=== PATIENT | female | born 1950 | race Caucasian/White ===

== ENCOUNTER → 2016-10-04 | Outpatient (CLI) | payer OTHER ==
--- NOTE | 2016-10-04 16:55 | DX ---
DEXA Bone Mineral Densitometry Clinical Indications: Postmenopausal, screening for osteoporosis Comparison: July 23, 2013 (low bone density) Technique: Bone Mineral Densitometry (BMD) by Dual Energy X-Ray Absorptiometry (DEXA) was performed utilizing the pinion-pins scanner. The lumbar spine was evaluated in the AP projection. The bilat eral hips and forearm were evaluated in the AP projection. Vertebral fracture assessment was also pe rformed. AP Lumbar Spine: The L1, L2, L3 and L4 vertebral bodies were evaluated. BMD: 0.972 gm/cm2 T-score: -1.8 SD Z-score: -0.3 SD Significantly decreased by 6.2% AP Left Hip: Total BMD: 0.839 gm/cm2 T-score: -1.3 SD Z-score: -0.2 SD Significantly decreased by 6.4% AP Right Hip: Neck BMD: 0.789 gm/cm2 T-score: -1.8 SD Z-score: -0.4 SD Total BMD is significantly decreased by 3.9%. AP Right Forearm, 09/11: BMD: 0.766 gm/cm2 T-score: -1.3 SD Z-score: 0.2 SD Significantly decreased by 7.5%. Vertebral Fracture Assessment: There is a stable mild compression of L1. No new compressions have de veloped.. No prevertebral aortic calcification, significant marginal bone spurring, facet arthrosis, or intrinsic vertebral body sclerosis that would effect the accuracy of the lumbar spine BMD measure ment. Conclusion: Considering the lowest measured site, the patient has low bone density which has signifi cantly decreased. Since the largest decrease has been in the forearm, it would be worthwhile to exclu de hyperparathyroidism. The ten year FRAX risk for any major osteoporotic fracture , which excludes the risk for a wrist frac ture, is 10.3% and for a hip fracture is 1.4%. Any bone loss in this patient is probably related to aging or estrogen deficiency. To prevent osteoporosis and to promote the patient's bone density, the following recommendations shou ld be considered: 1. Pursue a regular regimen of weightbearing and muscle strengthening exercises in order to reduce t he risk of falls and fractures (as tolerated by the patient's general medical condition). 2. Ensure that daily dietary calcium uptake is maximized. 3. Consider checking the serum vitamin D level. Ensure that intake of vitamin D is 600 IU per day (fo r all ages through 70) . 4. Consider follow-up DEXA scan in two years to assess the rate of bone loss in this patient.
== END ==
LOC: FIMAGING 13:46
PROVIDERS: ATTEND Family Medicine
DX: Z13.820 Encounter for screening for osteoporosis (principal); Z78.0 Asymptomatic menopausal state

== ENCOUNTER → 2017-04-11 | Outpatient (CLI) | payer OTHER | LOC: BMCIMAGING 10:55 | PROVIDERS: ATTEND Family Medicine | DX: Z12.39 Encounter for other screening for malignant neoplasm of breast (principal); N63 Unspecified lump in breast | CPT/HCPCS: 76641; G0204 ==

== ENCOUNTER → 2017-04-22 | Outpatient (CLI) | payer OTHER ==
[~2017-04-22] MED LIST: BUPIVACAINE 0.5% 10 ML SDV ONE; LIDO/EPI 1% **Not for Epidural 20 ML MDV ONE; LIDOCAINE 1% 300 MG/30 ML SDV ONE; THROMBIN (BOVINE) 5,000 UNIT VIAL TP ONE
[2017-04-25 15:20] LABS: ACCESSION # HR17-38804; INTERPRETATION See Comments
== END ==
LOC: FIMAGING 07:12
PROVIDERS: ATTEND Family Medicine
PROC: 07B53ZX Excision of Right Axillary Lymphatic, Percutaneous Approach, Diagnostic (ICD-10-PCS; principal; 2017-04-22)
PROC: 0HBT3ZX Excision of Right Breast, Percutaneous Approach, Diagnostic (ICD-10-PCS; principal; 2017-04-22)
DX: C50.911 Malignant neoplasm of unspecified site of right female breast (principal); C77.3 Secondary and unspecified malignant neoplasm of axilla and upper limb lymph nodes
CPT/HCPCS: 19083; 38505; 88360; 88361; G0206

== ENCOUNTER → 2017-05-07 | Outpatient (CLI) | payer OTHER ==
[~2017-05-07] MED LIST changes: -BUPIVACAINE 0.5% 10 ML SDV ONE; +GADOBUTROL 10 ML VIAL IVP ONE; -LIDO/EPI 1% **Not for Epidural 20 ML MDV ONE; -LIDOCAINE 1% 300 MG/30 ML SDV ONE; -THROMBIN (BOVINE) 5,000 UNIT VIAL TP ONE
== END ==
LOC: FIMAGING 09:52
DX: C50.411 Malignant neoplasm of upper-outer quadrant of right female breast (principal)
CPT/HCPCS: 0159T; A9585; C8908

== ENCOUNTER 2017-05-21 06:35 | Day surgery (SDC) | payer OTHER ==
[~2017-05-21 06:35] MED LIST changes: -GADOBUTROL 10 ML VIAL IVP ONE; +LIDOCAINE 1% 2 ML INJ ID PRN; +LR 1,000 ML IV ONE
[2017-05-21] MEDS ORDERED: LIDOCAINE 1% 300 MG/30 ML SDV ONE (08:53)
[2017-05-21] MEDS ORDERED: BUPIVACAINE 0.5% 30 ML SDV ONE (09:18)
[2017-05-21] MEDS ORDERED: BUPIVACAINE/EPI 0.5% 30 ML SDV ONE (09:18)
--- NOTE | 2017-05-21 12:37 | PDANEPAE ---
ANE History of Present Illness Right lumpectomy axillary node ANE Past Medical History - Cardiovascular History Hx Hypertension: No Hx Arrhythmias: No Hx Chest Pain: No Hx Coronary Artery / Peripheral Vascular Disease: No Hx CHF / Valvular Disease: No Hx Palpitations: No - Pulmonary History Hx COPD: No Hx Asthma/Reactive Airway Disease: No Hx Recent Upper Respiratory Infection: No Hx Oxygen in Use at Home: No Hx Sleep Apnea: No Sleep Apnea Screening Result - Last Documented: Negative - Neurologic History Hx Cerebrovascular Accident: No Hx Seizures: No Hx Dementia: No Neurologic History Comment: SCOLIOSIS - Endocrine History Hx Diabetes: No Endocrine History Comment: HYPOTHYROIDISM - Renal History Hx Renal Disorders: No - Liver History Hx Hepatic Disorders: No - Neurological & Psychiatric Hx Hx Neurological and Psychiatric Disorders: No Neurological / Psychiatric History Comment: ANXIETY R/T PROCEDURE - Cancer History Hx Cancer: Yes Cancer History Comment: CURRENT BREAST CA - Congenital Disorder History Hx Congenital Disorders: No - GI History Hx Gastrointestinal Disorders: Yes Gastrointestinal History Comment: GERD - Other Health History Other Health History: ROSACEA - Chronic Pain History Chronic Pain: Yes (ARTHRITIS AND BACK PAIN) - Surgical History Prior Surgeries: STEFFI. COLONOSCOPY. EXPLORATORY LAP FOR FERTILITY REASONS IN HER LATE 20'S ANE Review of Systems Review of Systems: - Exercise capacity METS (RN): 4 METS ANE Patient History - Allergies Allergies/Adverse Reactions: Sulfa (Sulfonamide Antibiotics) Allergy (Verified 05/16/17 12:05) Swelling/neck,face,throat - Home Medications Home Medications: Acid Liquid Yeast Supervisor 05/16/17 [Last Taken Unknown] Herbals/Supplements -Info Only 05/16/17 [Last Taken 05/16/17] LEVOTHYROXINE SODIUM 05/16/17 [Last Taken 05/21/17] Metronidazole Lotion 05/16/17 [Last Taken 05/21/17] PRILOSEC 05/16/17 [Last Taken 05/21/17] - NPO status NPO Since - Liquids (Date): 05/20/17 NPO Since - Liquids (Time): 21:00 NPO Since - Solids (Date): 05/20/17 NPO Since - Solids (Time): 17:45 - Anes Hx Anes Hx: no prior problems - Smoking Hx Smoking Status: Never smoked Marijuana use: No - Alcohol Use Alcohol Use: None - Family Anes Hx Family Anes Hx: none Family Hx Anesthesia Complications: SISTER SENSITIVE WELL ANE Labs/Vital Signs - Vital Signs Blood Pressure: 126/83 Heart Rate: 75 Respiratory Rate: 18 O2 Sat (%): 97 Height: 162.56 cm Weight: 65.771 kg ANE Physical Exam - Airway Neck exam: FROM Mallampati Score: Class 2 Mouth exam: normal dental/mouth exam - Pulmonary Pulmonary: no respiratory distress - Cardiovascular Cardiovascular: regular rate and rhythym - ASA Status ASA Status: II ANE Anesthesia Plan Anesthesia Plan: GA w LMA
[2017-05-21] MEDS ORDERED: MIDAZOLAM 2 MG/2 ML VIAL IVP ONE (12:40)
--- NOTE | 2017-05-21 12:52 | PDHPUP ---
History & Physical Update H&P update statement: This history and physical update is based on an assessment of the patient which was completed after admission or registration (within 24 hours), but prior to the surgery/procedure. H&P update: H&P reviewed & patient examined, no change in patient's condition since H&P completed
[2017-05-21] MEDS ORDERED: ROCURONIUM 50 MG/5 ML VIAL ONE (12:58)
[2017-05-21] MEDS ORDERED: fentaNYL 100 MCG/2 ML INJ ONE ×3 (12:58→13:40)
[2017-05-21] MEDS ORDERED: DEXAMETHASONE 4 MG/ML VIAL ONE (12:58)
[2017-05-21] MEDS ORDERED: PROPOFOL/EMULSION 500 MG/50 ML BOTTLE IV ONE (12:58)
[2017-05-21] MEDS ORDERED: KETOROLAC 30 MG/1 ML SDV ONE (12:58)
[2017-05-21] MEDS ORDERED: ONDANSETRON 4 MG/2 ML VIAL ONE ×3 (12:58→15:41)
[2017-05-21] MEDS ORDERED: LIDOCAINE 2% 5 ML SDV ONE (12:58)
[2017-05-21] MEDS: LIDO/EPI 1% **Not for Epidural 20 ML MDV ONE ×2 (13:39→14:10)
[2017-05-21] MEDS ORDERED: PROPOFOL 200 MG/20 ML VIAL ONE ×2 (13:43)
[2017-05-21] MEDS ORDERED: HYDROCODONE/APAP 5/325 TAB PO PRN (14:05)
[2017-05-21] MEDS ORDERED: fentaNYL 100 MCG/2 ML INJ IVP PRN (14:05)
[2017-05-21] MEDS ORDERED: PROMETHAZINE HCL 25 MG/ML INJ IVP PRN (14:05)
[2017-05-21] MEDS ORDERED: NALOXONE HCL 0.4 MG/ML INJ IVP PRN (14:05)
[2017-05-21] MEDS ORDERED: OXYCODONE/APAP 5/325 TAB PO PRN (14:05)
[2017-05-21] MEDS: ONDANSETRON 4 MG/2 ML VIAL IVP PRN ×2 (15:06→15:43)
--- NOTE | 2017-05-21 15:24 | POSTOPPROG ---
Post Op Note Date of Operation: 05/21/17 Surgeon: Sung Grant Anesthesiologist: Dustin Anesthesia: GET(General Endotracheal) Pre-op Diagnosis: Right Breast Cancer Post-op Diagnosis: Same Procedure: Right partial mast with US loc, ALND Inf/Abcess present in the surg proc area at time of surgery?: No EBL: Minimal Drains: Marino Zavala Specimen(s): breast, margins, axillary contents
[2017-05-21 15:43] VITALS: PULSE 64
[2017-05-21 15:53] VITALS: RESP 17
[2017-05-21 20:42] VITALS: TEMP 97.7
[2017-05-21 21:03] VITALS: BP 135/62; O2SAT 96
--- NOTE | 2017-05-21 21:05 | GOP ---
[f rep st] OPERATIVE REPORT DATE OF OPERATION: 05/21/2017 SURGEON: Sung Grant MD ANESTHESIA: General. ANESTHESIOLOGIST: Dr. Chan. PREOPERATIVE DIAGNOSIS: Right breast carcinoma. POSTOPERATIVE DIAGNOSIS: Right breast carcinoma. PROCEDURE PERFORMED: Right partial mastectomy with ultrasound localization with axillary lymph node dissection. 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 She had a needle aspiration of suspicious axillary lymph node which proved malignant as well. Preoperative MRI shows no other suspicious ipsilateral or contralateral lesions. She is under going a lumpectomy with axillary lymph node dissection at this time. Risks and benefits were explain ed including bleeding, infection, tumor recurrence, need for additional margin resection, arm edema, nerve injury, as well as roles for postoperative adjuvant therapy. All questions were answered. She desires to proceed. DESCRIPTION OF PROCEDURE: General anesthesia was induced upon returning from ultrasound localization . The breast and axilla were infiltrated with 1% lidocaine and 0.5% Marcaine. A low axillary hairli ne incision was created. The axilla was entered. Of note, were multiple accessory latissimus dorsi muscle fibers along the superficial/lateral axillary planes. The axillary vein was identified and sk eletonized inferiorly. The thoracodorsal nerve, as well as long thoracic nerves were easily identifi ed and preserved throughout the dissection. There were multiple firm palpable nodes present encompas sing the intercostal brachial nerve. This nerve was intentionally sacrificed during this dissection. The axillary contents were peeled inferiorly using the Harmonic Scalpel. The tissues were all sent for permanent specimen processing. Satisfactory hemostasis was assured throughout the axilla. The wound was closed in layers with absorbable suture over a 10 flat Marino-Zavala drain. The breast was incised through a 9 o'clock circumareolar incision. Using electrocautery, the localization wire was identified at the level of the chest wall. Using electrocautery and sharp dissection, a large core of tissue was taken encompassing the entire upper outer quadrant. The lesion was felt to be centrall y located within the excised specimen. The anterior and posterior margins appeared closest. The ant erior margin was completely skeletonized to the level of the skin. The posterior margin was taken in clusive of the pectoralis major muscle. Multiple hemoclips were placed circumferentially around the cavity. Hemostasis was assured throughout the oozing pectoralis major muscle. The defect was closed in layers with absorbable sutures followed by Dermabond. The patient was taken to [facility]. Copy requested to: Jacey Boyce /[id number]/MODL
== END 2017-05-21 18:08 | disposition home or self-care (01) ==
LOC: FSGY 06:35
PROVIDERS: ATTEND Surgery
PROC: BH40ZZZ Ultrasonography of Right Breast (ICD-10-PCS; principal; 2017-05-21 12:45)
PROC: 0HBT0ZZ Excision of Right Breast, Open Approach (ICD-10-PCS; principal; 2017-05-21 12:45)
PROC: 07T50ZZ Resection of Right Axillary Lymphatic, Open Approach (ICD-10-PCS; principal; 2017-05-21 12:45)
DX: C50.411 Malignant neoplasm of upper-outer quadrant of right female breast (principal); C77.3 Secondary and unspecified malignant neoplasm of axilla and upper limb lymph nodes; Z17.0 Estrogen receptor positive status [ER+]
CPT/HCPCS: J1100; J1885; J2250; J2405; J2704; J3010

== ENCOUNTER → 2017-12-02 | Outpatient (CLI) | payer OTHER ==
[~2017-12-02] MED LIST changes: +BACITRACIN OPHTHALMIC OINTMENT ONE; +BUPIVACAINE 0.25% 30 ML SDV ONE; -LIDOCAINE 1% 2 ML INJ ID PRN; +LIDOCAINE 1% 300 MG/30 ML SDV ONE; -LR 1,000 ML IV ONE
== END ==
LOC: FIMAGING 09:06
PROVIDERS: ATTEND Internal Medicine Hematology & Oncology
DX: Z13.820 Encounter for screening for osteoporosis (principal); M85.89 Other specified disorders of bone density and structure, multiple sites; E07.9 Disorder of thyroid, unspecified; Z78.0 Asymptomatic menopausal state

== ENCOUNTER → 2018-05-19 | Outpatient (CLI) | payer OTHER | LOC: FIMAGING 10:36 | PROVIDERS: ATTEND Internal Medicine Hematology & Oncology | DX: Z12.31 Encounter for screening mammogram for malignant neoplasm of breast (principal); Z85.3 Personal history of malignant neoplasm of breast ==